=== PATIENT | female | born 1990 | race Caucasian/White ===

== ENCOUNTER 2018-11-28 13:37 | Inpatient (IN) | payer BC, MEDICAID ==
[~2018-11-28] VITALS: Ht 172.7 cm; Wt 90.7 kg
[2018-11-28 13:40] VITALS: BP_SYST 146
[2018-11-28] MEDS ORDERED: MAGNESIUM SULFATE 50 ML IV ONE (13:45)
[2018-11-28] MEDS ORDERED: DEXAMETHASONE SOD PHOSPHATE 10 MG/ML VIAL IVP ONE (13:45)
[2018-11-28] MEDS ORDERED: IPRATROPIUM/ALBUTEROL SULFATE 3 ML AMPUL.NEB (DUONEB) INH ONE ×2 (13:45→15:15)
[2018-11-28] MEDS ORDERED: TERBUTALINE SULFATE 1 MG/ML VIAL SUBCUT ONE (13:45)
[2018-11-28 14:15] LABS: BASOPHILS % (AUTO) 0.6 % (0.0-2.0); EOSINOPHILS # (AUTO) 0.1 K/uL (0.0-0.4); EOSINOPHILS % (AUTO) 1.7 % (0.0-4.0); HEMATOCRIT 41.8 % (36-48); HEMOGLOBIN 14.5 g/dL (12.0-16.0); LYMPHOCYTES # (AUTO) 2.9 K/uL (1.0-5.5); MEAN CORPUSCULAR HEMOGLOBIN 31 pg (27-31); MEAN CORPUSCULAR HGB CONC 35 % (32-36); MEAN CORPUSCULAR VOLUME 89 fL (79.0-98.0); MONOCYTES # (AUTO) 0.9 K/uL (0.0-1.0); MONOCYTES % (AUTO) 11.2 % (1.7-9.3); NEUTROPHILS # (AUTO) 4.3 K/uL (1.8-7.7); NEUTROPHILS % (AUTO) 51.5 % (40.0-70.0); PLATELET COUNT (AUTO) 316 K/uL (130-430); RED BLOOD CELL COUNT(AUTO) 4.68 MIL/uL (4.2-6.2); RED CELL DISTRIBUTION WIDTH 11.9 % (9.0-15.0); WHITE BLOOD COUNT (AUTO) 8.3 K/uL (4.8-10.8)
[2018-11-28] MEDS ORDERED: NACL 0.9% 1,000 ML IV ONE (14:15)
[2018-11-28 14:28] LABS: CALCIUM 8.9 mg/dL (8.4-11.0); CREATININE 0.73 mg/dL (0.55-1.30); POTASSIUM 3.3 mmol/L (3.5-5.1)
[2018-11-28 14:33] LABS: ALBUMIN 3.8 g/dL (3.4-4.8); TOTAL BILIRUBIN 0.3 mg/dL (0.0-1.0)
[2018-11-28] MEDS ORDERED: TIOT18CA3 IH (15:19)
[2018-11-28] MEDS ORDERED: VENL75CA PO (15:19)
[2018-11-28] MEDS ORDERED: FLUT1DIS5 IH (15:19)
[2018-11-28] MEDS ORDERED: ALBU2.5V7 INH (15:19)
[2018-11-28] MEDS ORDERED: DIPHENHYDRAMINE INJ 50 MG/ML VIAL IVP ONE (15:30)
[2018-11-28] MEDS ORDERED: IPRATROPIUM/ALBUTEROL SULFATE 3 ML AMPUL.NEB (DUONEB) INH PRN (15:30)
[2018-11-28] MEDS ORDERED: EPINEPHrine 1 MG/ML AMP IM ONE (15:30)
[2018-11-28] MEDS ORDERED: MORPHINE 2 MG/ML INJ. SYRINGE IVP PRN ×2 (15:45)
[2018-11-28] MEDS ORDERED: POTASSIUM CHLORIDE 20 MEQ TAB.PRT.SR PO PRN (15:45)
[2018-11-28] MEDS ORDERED: DOCUSATE SODIUM 100 MG CAPSULE PO PRN (15:45)
[2018-11-28] MEDS ORDERED: POTASSIUM CHLORIDE 20 MEQ TAB.PRT.SR PO ONE (15:45)
[2018-11-28] MEDS ORDERED: MUPIROCIN 2% TOPICAL OINTMENT 22 GM NS PRN (15:45)
[2018-11-28] MEDS ORDERED: ZOLPIDEM TARTRATE 5 MG TABLET PO PRN (15:45)
[2018-11-28] MEDS ORDERED: MAGNESIUM SULFATE 50 ML IV PRN (15:45)
[2018-11-28] MEDS ORDERED: LORazepam 2 MG/ML VIAL IVP PRN ×2 (15:45→17:30)
[2018-11-28 16:00] VITALS: BP_SYST 134
[2018-11-28 16:09] VITALS: BP_SYST 129
[2018-11-28] MEDS: NACL 0.9% 1,000 ML IV SCH (16:15)
[2018-11-28] MEDS ORDERED: AZITHROMYCIN 250 MG TABLET PO ONE (17:30)
[2018-11-28] MEDS: DIPHENHYDRAMINE INJ 50 MG/ML VIAL IVP PRN (17:43)
[2018-11-28 20:00] VITALS: BP_SYST 112
[2018-11-28] MEDS: DEXAMETHASONE SOD PHOSPHATE 4 MG/ML VIAL IVP SCH (20:13)
[2018-11-28] MEDS: ONDANSETRON HCL 4 MG/2 ML VIAL IVP PRN (20:14)
[2018-11-28] MEDS: ACETAMINOPHEN 325 MG TABLET PO PRN (20:14)
[2018-11-28] MEDS: VENLAFAXINE HCL 75 MG TABLET PO SCH (20:16)
[2018-11-28] MEDS: BUDESONIDE 0.5 MG/2 ML AMPUL.NEB INH SCH (20:36)
[2018-11-28 23:46] VITALS: BP_SYST 120
[2018-11-29] MEDS: DIPHENHYDRAMINE INJ 50 MG/ML VIAL IVP PRN ×3 (01:30→23:07)
[2018-11-29] MEDS: ALBUTEROL SULFATE 0.083% 2.5 MG/3 ML VIAL.NEB INH SCH ×4 (01:41→19:00)
[2018-11-29] MEDS: NACL 0.9% 1,000 ML IV SCH ×2 (05:48→20:28)
[2018-11-29] MEDS: IPRATROPIUM BROM 0.5 MG/2.5 ML VIAL.NEB (ATROVENT) INH SCH ×3 (07:22→19:00)
[2018-11-29 07:24] LABS: CREATININE 0.65 mg/dL (0.55-1.30); POTASSIUM 4.2 mmol/L (3.5-5.1)
[2018-11-29] MEDS: BUDESONIDE 0.5 MG/2 ML AMPUL.NEB INH SCH ×2 (07:36→19:57)
[2018-11-29 08:00] VITALS: BP_SYST 102
[2018-11-29] MEDS: VENLAFAXINE HCL 75 MG TABLET PO SCH ×2 (09:12→18:58)
[2018-11-29] MEDS: AZITHROMYCIN 250 MG TABLET PO SCH (09:13)
[2018-11-29] MEDS: DEXAMETHASONE SOD PHOSPHATE 4 MG/ML VIAL IVP SCH (09:13)
[2018-11-29] MEDS: DIPHENHYDRAMINE HCL 50 MG CAPSULE PO SCH ×2 (10:08→20:28)
[2018-11-29] MEDS: DECADRON 4 MG TABLET PO SCH ×2 (10:08→20:28)
[2018-11-29] MEDS: ONDANSETRON HCL 4 MG/2 ML VIAL IVP PRN ×2 (10:11→20:28)
[2018-11-29] MEDS: ACETAMINOPHEN 325 MG TABLET PO PRN (11:10)
[2018-11-29 13:13] VITALS: BP_SYST 111
[2018-11-29 16:18] VITALS: BP_SYST 118
[2018-11-29 20:00] VITALS: BP_SYST 123
[2018-11-30] VITALS: BP_SYST 124
[2018-11-30] MEDS: ALBUTEROL SULFATE 0.083% 2.5 MG/3 ML VIAL.NEB INH SCH ×2 (01:00→07:00)
[2018-11-30] MEDS: IPRATROPIUM BROM 0.5 MG/2.5 ML VIAL.NEB (ATROVENT) INH SCH ×2 (01:00→07:00)
[2018-11-30] MEDS: BUDESONIDE 0.5 MG/2 ML AMPUL.NEB INH SCH (07:00)
[2018-11-30 08:00] VITALS: BP_SYST 110
[2018-11-30] MEDS: DIPHENHYDRAMINE HCL 50 MG CAPSULE PO SCH (08:55)
[2018-11-30] MEDS: AZITHROMYCIN 250 MG TABLET PO SCH (08:56)
[2018-11-30] MEDS: DECADRON 4 MG TABLET PO SCH (08:56)
[2018-11-30] MEDS: ONDANSETRON HCL 4 MG/2 ML VIAL IVP PRN (08:57)
[2018-11-30] MEDS: VENLAFAXINE HCL 75 MG TABLET PO SCH (08:57)
[2018-11-30] MEDS ORDERED: AZIT250T PO (10:59)
[2018-11-30] MEDS ORDERED: DEC4 PO (10:59)
[2018-11-30] MEDS ORDERED: BEN50 PO (11:00)
[2018-11-30 11:52] VITALS: BP_SYST 120
[2018-11-30 12:00] VITALS: BP_SYST 120
== END 2018-11-30 13:22 | disposition home or self-care (01) | DRG 189 ==
LOC: SED 13:37 → STU 15:21
PROVIDERS: ADMIT General Practice; ATTEND General Practice
PROC: 02HV33Z Insertion of Infusion Device into Superior Vena Cava, Percutaneous Approach (ICD-10-PCS; principal; 2018-11-28)
DX: J96.00 Acute respiratory failure, unspecified whether with hypoxia or hypercapnia (principal); J45.902 Unspecified asthma with status asthmaticus; J45.901 Unspecified asthma with (acute) exacerbation; E87.6 Hypokalemia; E66.9 Obesity, unspecified; F32.9 Major depressive disorder, single episode, unspecified; Z79.899 Other long term (current) drug therapy; Z88.8 Allergy status to other drugs, medicaments and biological substances; Z68.30 Body mass index [BMI] 30.0-30.9, adult
CPT/HCPCS: 36415; 71045; 80048; 80053; 82550-TC; 83880; 85025; 87040-TC; 93005; 94640; 94660; 96365; 96375; 99291; G0378; J1100; J1200; J2405; J3105; J3475; J7030; J7613; J7620; J7626; J8540; Q0144; Q0163

== ENCOUNTER 2019-02-06 15:12 | Inpatient (IN) | payer BC, MEDICAID ==
[~2019-02-06] VITALS: Ht 172.7 cm; Wt 90.7 kg
[~2019-02-06 15:12] MED LIST: ALBU2.5V7 INH; AZIT250T PO; BEN50 PO; DEC4 PO; FLUT1DIS5 IH; TIOT18CA3 IH; VENL75CA PO
[2019-02-06 15:13] VITALS: BP_SYST 142
[2019-02-06] MEDS ORDERED: EPINEPHrine JECT 0.1 MG/ML SYR IVP ONE (15:30)
[2019-02-06] MEDS ORDERED: MAGNESIUM SULFATE 1 GM in NS 100 ML IV ONE (15:30)
[2019-02-06] MEDS ORDERED: NACL 0.9% 1,000 ML IV ONE ×2 (15:30→17:00)
[2019-02-06] MEDS ORDERED: MAGNESIUM SULFATE 1 GM/2 ML VIAL ONE (15:58)
[2019-02-06] MEDS ORDERED: DILTIAZEM HCL 25 MG/5 ML VIAL IVP ONE (16:15)
[2019-02-06 16:19] LABS: BASOPHILS % (AUTO) 0.3 % (0.0-2.0); EOSINOPHILS % (AUTO) 0.1 % (0.0-4.0); HEMATOCRIT 40.3 % (36-48); HEMOGLOBIN 13.7 g/dL (12.0-16.0); LYMPHOCYTES # (AUTO) 1.2 K/uL (1.0-5.5); LYMPHOCYTES % (AUTO) 13.6 % (20.5-51.5); MEAN CORPUSCULAR HEMOGLOBIN 30 pg (27-31); MEAN CORPUSCULAR HGB CONC 34 % (32-36); MEAN CORPUSCULAR VOLUME 88 fL (79.0-98.0); MONOCYTES # (AUTO) 0.6 K/uL (0.0-1.0); MONOCYTES % (AUTO) 6.8 % (1.7-9.3); NEUTROPHILS # (AUTO) 7.3 K/uL (1.8-7.7); NEUTROPHILS % (AUTO) 79.2 % (40.0-70.0); PLATELET COUNT (AUTO) 289 K/uL (130-430); RED BLOOD CELL COUNT(AUTO) 4.58 MIL/uL (4.2-6.2); RED CELL DISTRIBUTION WIDTH 12.6 % (9.0-15.0); WHITE BLOOD COUNT (AUTO) 9.2 K/uL (4.8-10.8)
[2019-02-06 16:40] LABS: CALCIUM 8.5 mg/dL (8.4-11.0); CREATININE 0.76 mg/dL (0.55-1.30); POTASSIUM 3.2 mmol/L (3.5-5.1)
[2019-02-06 16:41] LABS: PROTHROMBIN TIME 10.1 SECS (9.5-12.5)
[2019-02-06 16:52] LABS: ALBUMIN 3.9 g/dL (3.4-4.8); TOTAL BILIRUBIN 0.2 mg/dL (0.0-1.0)
[2019-02-06] MEDS ORDERED: ASPI-1155 PO (17:03)
[2019-02-06] MEDS ORDERED: IPRATROPIUM/ALBUTEROL SULFATE 3 ML AMPUL.NEB (DUONEB) INH ONE (17:30)
[2019-02-06] MEDS ORDERED: POTASSIUM CHLORIDE 20 MEQ TAB.PRT.SR PO ONE ×2 (17:45→18:00)
[2019-02-06] MEDS ORDERED: PIPERACILLIN/TAZO 3.375 GM in NS 50 ML IV ONE (17:45)
[2019-02-06] MEDS ORDERED: IPRATROPIUM/ALBUTEROL SULFATE 3 ML AMPUL.NEB (DUONEB) INH PRN (18:00)
[2019-02-06] MEDS ORDERED: ONDANSETRON HCL 4 MG/2 ML VIAL IVP ONE (18:00)
[2019-02-06] MEDS ORDERED: DEXAMETHASONE SOD PHOSPHATE 10 MG/ML VIAL IVP ONE (18:00)
[2019-02-06] MEDS ORDERED: PIPERACILLIN/TAZOBACTAM 3.375 GM/VIAL (ZOSYN) IV ONE ×2 (18:12→23:09)
[2019-02-06] MEDS ORDERED: DEXAMETHASONE SOD PHOSPHATE 10 MG/ML VIAL ONE (18:14)
[2019-02-06] MEDS ORDERED: ONDANSETRON HCL 4 MG/2 ML VIAL ONE (18:15)
[2019-02-06] MEDS ORDERED: PANTOPRAZOLE SODIUM 40 MG TAB PO ONE (18:15)
[2019-02-06] MEDS ORDERED: POTASSIUM CHLORIDE 20 MEQ TAB.PRT.SR ONE (18:25)
[2019-02-06 18:57] VITALS: BP_SYST 91
[2019-02-06 19:02] LABS: BILIRUBIN,URINE NEGATIVE (NEGATIVE); CLARITY/URINE CLEAR (CLEAR); COLOR,URINE YELLOW (YELLOW); GLUCOSE,URINE NEGATIVE (NEGATIVE); KETONES,URINE TRACE (NEGATIVE); LEUKOCYTE ESTERASE ,URINE NEGATIVE (NEGATIVE); NITRITE, URINE NEGATIVE (NEGATIVE); PROTEIN URINE 1+ (NEGATIVE); UROBILINOGEN,URINE 0.2 (0.2-1.0)
[2019-02-06 19:08] LABS: BLOOD, URINE TRACE (NEGATIVE)
[2019-02-06 19:14] LABS: BACTERIA,URINE FEW /HPF (None Seen); RBC,URINE 0-3 /HPF (0-3); WBC,URINE 0-3 /HPF (0-3)
[2019-02-06 19:15] LABS: FINE GRANULAR CASTS,URINE 0-10 /LPF (None Seen); MUCUS,URINE 1+ /LPF (None Seen)
[2019-02-06 20:00] VITALS: BP_SYST 96
[2019-02-06] MEDS: VENLAFAXINE HCL 75 MG TABLET PO SCH (21:00)
[2019-02-06] MEDS ORDERED: ZOLPIDEM TARTRATE 5 MG TABLET PO ONE (21:30)
[2019-02-06] MEDS ORDERED: ONDANSETRON HCL 4 MG/2 ML VIAL IVP PRN (22:00)
[2019-02-06] MEDS: DEXAMETHASONE SOD PHOSPHATE 4 MG/ML VIAL IVP SCH (22:00)
[2019-02-06] MEDS ORDERED: ACETAMINOPHEN 325 MG TABLET PO PRN (22:00)
[2019-02-06] MEDS: KCL 20 mEq in NS 1000 mL 1,000 ML IV SCH (23:10)
[2019-02-06] MEDS: PIPERACILLIN/TAZO 3.375/DEX-IS 50 ML IV SCH (23:11)
[2019-02-06] MEDS ORDERED: KCL 20 mEq in NS 1000 mL 1,000 ML IV ONE (23:11)
[2019-02-07 01:20] VITALS: BP_SYST 91
[2019-02-07] MEDS: DEXAMETHASONE SOD PHOSPHATE 4 MG/ML VIAL IVP SCH ×2 (05:48→13:37)
[2019-02-07] MEDS: PIPERACILLIN/TAZO 3.375/DEX-IS 50 ML IV SCH ×2 (05:49→11:34)
[2019-02-07 07:08] LABS: BASOPHILS % (AUTO) 0.1 % (0.0-2.0); HEMATOCRIT 36.7 % (36-48); HEMOGLOBIN 12.4 g/dL (12.0-16.0); LYMPHOCYTES # (AUTO) 1.1 K/uL (1.0-5.5); LYMPHOCYTES % (AUTO) 8.8 % (20.5-51.5); MEAN CORPUSCULAR HEMOGLOBIN 30 pg (27-31); MEAN CORPUSCULAR HGB CONC 34 % (32-36); MEAN CORPUSCULAR VOLUME 88 fL (79.0-98.0); MONOCYTES # (AUTO) 0.8 K/uL (0.0-1.0); MONOCYTES % (AUTO) 6.3 % (1.7-9.3); NEUTROPHILS # (AUTO) 10.2 K/uL (1.8-7.7); NEUTROPHILS % (AUTO) 84.8 % (40.0-70.0); PLATELET COUNT (AUTO) 243 K/uL (130-430); RED BLOOD CELL COUNT(AUTO) 4.15 MIL/uL (4.2-6.2); RED CELL DISTRIBUTION WIDTH 12.6 % (9.0-15.0); WHITE BLOOD COUNT (AUTO) 12.1 K/uL (4.8-10.8)
[2019-02-07 07:23] VITALS: BP_SYST 91
[2019-02-07 07:44] LABS: CREATININE 0.62 mg/dL (0.55-1.30); POTASSIUM 3.8 mmol/L (3.5-5.1)
[2019-02-07 07:55] LABS: CALCIUM 8.2 mg/dL (8.4-11.0)
[2019-02-07] MEDS: VENLAFAXINE HCL 75 MG TABLET PO SCH (08:34)
[2019-02-07 08:35] VITALS: BP_SYST 89
[2019-02-07] MEDS: KCL 20 mEq in NS 1000 mL 1,000 ML IV SCH (08:35)
[2019-02-07] MEDS ORDERED: PANTOPRAZOLE SODIUM 40 MG TAB PO SCH (09:00)
[2019-02-07 11:28] VITALS: BP_SYST 110
[2019-02-07] MEDS ORDERED: HEPARIN IV FLUSH 300 UNITS/3ML SYR IV ONE (15:15)
[2019-02-07 15:27] VITALS: BP_SYST 115
[2019-02-07 15:29] VITALS: BP_SYST 115
[2019-02-07] MEDS ORDERED: HEPARIN IV FLUSH 300 UNITS/3ML SYR INJ ONE ×2 (15:45→16:15)
== END 2019-02-07 16:40 | disposition home or self-care (01) | DRG 720 ==
LOC: SED 15:12 → STU 17:50
PROVIDERS: ADMIT Internal Medicine; ATTEND Internal Medicine
DX: A41.9 Sepsis, unspecified organism (principal); J45.901 Unspecified asthma with (acute) exacerbation; E87.6 Hypokalemia; F32.9 Major depressive disorder, single episode, unspecified; Z88.9 Allergy status to unspecified drugs, medicaments and biological substances; Z79.82 Long term (current) use of aspirin
CPT/HCPCS: 36415; 36600; 71045; 80048; 80053; 81000-TC; 82803-TC; 83605; 84484; 85025; 85610-TC; 85730-TC; 87040-TC; 93005; 94640; 96365; 96367; 96375; 99291; G0378; J0171; J1100; J1642; J2405; J2543; J3475; J3480; J7060; J7620

== ENCOUNTER 2019-05-08 21:28 | Emergency (ER) | payer BC, MEDICAID ==
[~2019-05-08] VITALS: Ht 170.2 cm; Wt 96.6 kg
[~2019-05-08 21:28] MED LIST changes: +ASPI-1155 PO; -AZIT250T PO; -DEC4 PO
[2019-05-08 21:30] VITALS: BP_SYST 137
[2019-05-08] MEDS ORDERED: DEXAMETHASONE SOD PHOSPHATE 10 MG/ML VIAL IVP ONE (21:45)
[2019-05-08] MEDS ORDERED: IPRATROPIUM BROM 0.5 MG/2.5 ML VIAL.NEB (ATROVENT) INH ONE (21:45)
[2019-05-08] MEDS ORDERED: ALBUTEROL SULFATE 0.083% 2.5 MG/3 ML VIAL.NEB INH ONE (21:45)
[2019-05-08 23:05] LABS: BASOPHILS # (AUTO) 0.1 K/uL (0.0-0.2); BASOPHILS % (AUTO) 0.7 % (0.0-2.0); EOSINOPHILS # (AUTO) 0.1 K/uL (0.0-0.4); EOSINOPHILS % (AUTO) 1.1 % (0.0-4.0); HEMATOCRIT 40.4 % (36-48); HEMOGLOBIN 13.7 g/dL (12.0-16.0); LYMPHOCYTES # (AUTO) 2.2 K/uL (1.0-5.5); LYMPHOCYTES % (AUTO) 21.9 % (20.5-51.5); MEAN CORPUSCULAR HEMOGLOBIN 30 pg (27-31); MEAN CORPUSCULAR HGB CONC 34 % (32-36); MEAN CORPUSCULAR VOLUME 88 fL (79.0-98.0); NEUTROPHILS # (AUTO) 6.8 K/uL (1.8-7.7); NEUTROPHILS % (AUTO) 66.3 % (40.0-70.0); PLATELET COUNT (AUTO) 286 K/uL (130-430); RED BLOOD CELL COUNT(AUTO) 4.62 MIL/uL (4.2-6.2); RED CELL DISTRIBUTION WIDTH 12.8 % (9.0-15.0); WHITE BLOOD COUNT (AUTO) 10.2 K/uL (4.8-10.8)
[2019-05-08 23:15] LABS: ANION GAP 11 (5-15); CALCIUM 8.3 mg/dL (8.4-11.0); CHLORIDE 102 mmol/L (98-107); CREATININE 0.76 mg/dL (0.55-1.30); GLUCOSE 136 mg/dL (70-99); SODIUM SERUM 138 mmol/L (136-145); UREA NITROGEN, BLOOD 12 mg/dL (8-21)
[2019-05-08 23:23] LABS: ALANINE AMINOTRANSFERASE 45 U/L (12-78); ALBUMIN 3.9 g/dL (3.4-4.8); ASPARTATE AMINOTRANSFERASE 20 U/L (10-37); TOTAL BILIRUBIN 0.1 mg/dL (0.0-1.0)
[2019-05-08 23:26] LABS: GFR AFRICAN AMERICAN 117 mL/min (>90); POTASSIUM 2.7 mmol/L (3.5-5.1)
[2019-05-08] MEDS ORDERED: POTASSIUM CHLORIDE 20 MEQ TAB.PRT.SR PO ONE (23:45)
[2019-05-09] MEDS ORDERED: ONDANSETRON HCL 4 MG/2 ML VIAL IVP ONE (00:15)
[2019-05-09 01:07] VITALS: BP_SYST 129
== END 2019-05-09 01:07 | disposition home or self-care (01) ==
LOC: SED 21:28
DX: J45.901 Unspecified asthma with (acute) exacerbation (principal); Z88.2 Allergy status to sulfonamides; Z88.8 Allergy status to other drugs, medicaments and biological substances; Z79.82 Long term (current) use of aspirin; Z79.899 Other long term (current) drug therapy
CPT/HCPCS: 36415; 71045; 80053; 83735; 83880; 84484; 85025; 85379; 94640; 96374; 96375; 99284; J1100; J2405; J7613